=== PATIENT | female | born 1970 | race Caucasian/White ===

== ENCOUNTER 2017-06-16 08:15 | Inpatient (IN) | payer BC ==
[2017-06-16] MEDS ORDERED: Ondansetron 4 MG/2 ML SDV IV PRN (08:28)
[2017-06-16] MEDS ORDERED: Methylergonovine 0.2 MG/1 ML Amp IM PRN (08:28)
[2017-06-16] MEDS ORDERED: Sodium Chloride 0.9% 10 ML Syringe FLUSH PRN (08:28)
[2017-06-16] MEDS ORDERED: Acetaminophen 325 MG Tab PO PRN (08:28)
[2017-06-16] MEDS ORDERED: Carboprost Tromethamine 250 MCG/1 ML Amp IM PRN (08:28)
[2017-06-16] MEDS ORDERED: Misoprostol 400 MCG (4 X 100 MCG TAB) RECTAL PRN (08:28)
[2017-06-16] MEDS ORDERED: Lidocaine 1% 30 ML SDV INJECT PRN (08:28)
[2017-06-16] MEDS ORDERED: Nalbuphine 20 MG/1 ML Amp IVPUSH PRN (08:28)
[2017-06-16] MEDS ORDERED: Lactated Ringers 500 ML IV ONE (08:28)
[2017-06-16] MEDS ORDERED: fentaNYL 100 MCG/2 ML SDV IVPUSH PRN (08:28)
[2017-06-16] MEDS: Lactated Ringers 1,000 ML IV SCH ×3 (08:30→13:26)
[2017-06-16] MEDS: Penicillin G Potassium 3 MILLUNITS in Sodium Chloride 0.9% 100 ML IV SCH ×2 (10:12→19:08)
[2017-06-16] MEDS: Oxytocin/Normal Saline 30 UNIT/500 ML BAG IV SCH ×2 (10:35→11:10)
[2017-06-16] MEDS ORDERED: EPINEPHrine 1 MG/ML SDV ONE (12:16)
[2017-06-16] MEDS ORDERED: fentaNYL 100 MCG/2 ML SDV ONE (12:16)
--- NOTE | 2017-06-16 13:25 | PCM.PRNOTE ---
- Free Text/Narrative Note: Requested to provide analgesia to full term patient in severe pain. Upon entering the room, patient is lying on left side complaining of severe abdominal pain and discomfort. Procedure was discussed with patient including adverse outcomes and expectations. Pt consented to analgesia, SAB/IT. Pt placed into a sitting position. Landmarks for SAB/IT were identified and marked. Back was prepped with betadine x3. A sterile, transparent, fenestrated drape was applied. Excess betadine was removed. Using 3 mL of a 1% lidocaine solution, a skin wheel was placed at the L3/L4 interspace. A 24 ga (4 inch) Pencan spinal needle was inserted until positive for CSF. Negative for heme or paresthesias. Injected fentanyl 20 mcg, sufentanil 10 mcg, and 12 mg of a 0.75 % bupivacaine solution with an epi wash. Pt was placed left lateral position for approximately 20 minutes. There were zero complications or adverse outcomes. Will continue to monitor.
[2017-06-16] MEDS ORDERED: Benzocaine/Menthol 20%-0.5% Spray 56 GM Canister TOP PRN (14:12)
[2017-06-16] MEDS ORDERED: Simethicone 80 MG Tab.Chew PO PRN (14:12)
[2017-06-16] MEDS ORDERED: Oxytocin 10 Units/1 ML SDV IM PRN (14:12)
--- NOTE | 2017-06-16 19:19 | PCM.LDHP ---
L&D History of Present Illness - General Date of Service: 06/16/17 Admit Problem/Dx: Patient Status Order with Admit Dx/Problem 06/16/17 08:28 Patient Status [ADT] Routine Admission Diagnosis/Problem Admission Diagnosis/Problem Source of Information: Patient History Limitations: Reports: No Limitations - History of Present Illness Introduction:: 46-year-old at 39w3d presents to Labor and Delivery via EMS from [place]. Per patient, she started que around 2300 last night. Her contractions initially were only 20 minutes apart; however, because of the travel conditions , she and her decided to head for [place]. Because of the roads, they were only able to make it to [place]. She was monitored there for about 7 hours. She was noted to be que anywhere from every 7 to every 20 minutes. She is GBS positive and received 2 doses of Ampicillin for prophylaxis. She SROM'd for clear fluids around 615 today. When travel conditions improved, she was transported to L&D and arrived shortly after 0830. Patient currently is que every 10-15 minutes. They last about 1 minute. Patient is feeling them but they are not as painful as they were earlier. Baby has been active. No vaginal bleeding. No new headaches. - Related Data Allergies/Adverse Reactions: Allergies Allergy/AdvReac Type Severity Reaction Status Date / Time No Known Allergies Allergy Verified 06/15/17 17:21 Home Medications: Home Meds Pnv No.122/Iron/Folic Acid [ Multi Tablet] 1 tab PO DAILY 06/15/17 [ History] Past Medical History - Past Health History Medical/Surgical History: Denies Medical/Surgical History Psychiatric History: Reports: Depression - Past Surgical History Female Surgical History: Reports: Other (See Below) (Breast lump excision) Musculoskeletal Surgical History: Reports: Other (See Below) (Knee surgery) Social & Family History - Family History Family Medical History: Noncontributory Oncologic: Reports: Colon (2 maternal aunts) - Tobacco Use Smoking Status *Q: Never Smoker Second Hand Smoke Exposure: No - Alcohol Use Alcohol Use History: No - Recreational Drug Use Recreational Drug Use: No - Sexual History Sexual History: Reports: Single Partner - Living Situation & Occupation Living situation: Reports: Occupation: Other (Homemake/emotional support teacher) H&P Review of Systems - Review of Systems: Review Of Systems: See Below General: Reports: No Symptoms HEENT: Reports: No Symptoms Pulmonary: Reports: No Symptoms Cardiovascular: Reports: No Symptoms Genitourinary: Reports: No Symptoms Musculoskeletal: Reports: No Symptoms Skin: Reports: No Symptoms L&D Exam - Exam Exam: See Below - Vital Signs Weight: 80.739 kg - OB Specific Contraction Intensity: Mild to Moderate Movement: Active Heart Tones: Present Heart Tones per Min: 140 Heart Rate (FHR) Variability: Moderate (6-25 bmp) Presentation: Vertex - Pedersen Score Pedersen Score Cervix Position: Midposition Pedersen Score Consistency: Soft Pedersen Score Effacement: >80% Pedersen Score Dilation: 3-4 cm Pedersen Score 's Station: -2 Pedersen Score Total: 9 - Exam General: Alert, Oriented HEENT: Mucosa Moist & [place] Lungs: Clear to Auscultation, Normal Respiratory Effort Cardiovascular: Regular Rate, Regular Rhythm. No: Systolic Murmur, Diastolic Murmur Extremities: No Pedal Edema Skin: Warm, Dry, Intact Psychiatric: Alert, Normal Affect - Patient Data Lab Results Last 24 hrs: Laboratory Results - last 24 hr 06/16/17 Range/Units 08:28 WBC 9.3 (5.0-10.0) 10^3/uL RBC 3.81 L (4.2-5.4) 10^6/uL Hgb 11.8 L (12.0-16.0) g/dL Hct 34.5 L (37.0-47.0) % MCV 90.6 (80-100) fL MCH 31.0 (27.0-34.0) pg MCHC 34.2 (33.0-35.0) g/dL Plt Count 163 (150-450) 10^3/uL Result Diagrams: 06/16/17 08:28 - Problem List (1) SROM (spontaneous rupture of membranes) SNOMED Code(s): 146314015 ICD Code: [id number] - Status: Acute Current Visit: Yes (2) AMA (advanced maternal age) multigravida 35+ SNOMED Code(s): 926918043 ICD Code: O09.529 - SUPERVISION OF ELDERLY MULTIGRAVIDA, UNSPECIFIED TRIMESTER Status: Acute Current Visit: Yes (3) Grand multipara in labor SNOMED Code(s): 980020654 ICD Code: O09.40 - SUPERVISION OF W GRAND MULTIPARITY, UNSP TRIMESTER Status: Acute Current Visit: Yes (4) GBS (group B Streptococcus carrier), +RV culture, currently SNOMED Code(s): 9017683285164, 5531726372493 ICD Code: O99.820 - STREPTOCOCCUS B CARRIER STATE COMPLICATING Status: Acute Current Visit: Yes (5) Abnormal glucose affecting SNOMED Code(s): 455088526 ICD Code: O99.810 - ABNORMAL GLUCOSE COMPLICATING Status: Acute Current Visit: Yes Problem List Initiated/Reviewed/Updated: Yes Orders Last 24hrs: Active Orders 24 hr Category Date Time Status Patient Status [ADT] Routine ADT 06/16/17 08:28 Active Notify Provider Vital Signs OB [RC] ASDIRECTED Care 06/16/17 08:28 Active Notify Provider [RC] PRN Care 06/16/17 08:28 Active Up ad Cynthia [RC] ASDIRECTED Care 06/16/17 08:28 Active Up ad Cynthia [RC] ASDIRECTED Care 06/16/17 14:12 Active Vital Signs [RC] PER UNIT ROUTINE Care 06/16/17 08:28 Inactive Vital Signs [RC] PFP Care 06/16/17 14:12 Active Regular Diet [DIET] Diet 06/16/17 Dinner Active Acetaminophen [Tylenol] Med 06/16/17 08:28 Active 650 mg PO Q4H PRN Benzocaine/Menthol [Dermoplast Pain Relief [place]] Med 06/16/17 14:12 Active See Dose Instructions TOP Q4H PRN Carboprost Tromethamine [Hemabate DS] Med 06/16/17 08:28 Active 250 mcg IM ASDIRECTED PRN Docusate Sodium [Colace] Med 06/16/17 14:12 Active 100 mg PO BID PRN Ibuprofen [Motrin] Med 06/16/17 14:12 Active 800 mg PO Q8H PRN Methylergonovine [Methergine] Med 06/16/17 08:28 Active 0.2 mg IM ASDIRECTED PRN Misoprostol [Cytotec] Med 06/16/17 08:28 Active 800 mcg RECTAL ASDIRECTED PRN Ondansetron [Zofran] Med 06/16/17 08:28 Active 4 mg IV Q4H PRN Oxytocin [Pitocin] Med 06/16/17 14:12 Active 10 unit IM ONETIME PRN Oxytocin/Normal Saline [Pitocin in NS 30 UNIT/500 ML] Med 06/16/17 08:30 Active 30 unit in 500 ml IV TITRATE Vit with Ca/FA/Iron [ Plus Iron] Med 06/17/17 09:00 Active 1 each PO DAILY Simethicone Med 06/16/17 14:12 Active 80 mg PO Q4H PRN Sodium Chloride 0.9% [Saline Flush] Med 06/16/17 08:28 Active 10 ml FLUSH ASDIRECTED PRN Assess Lochia [WOMSER] Per Unit Routine Oth 06/16/17 14:12 Ordered Assess Uterine Involution [WOMSER] Per Unit Routine Oth 06/16/17 14:12 Ordered Breast Pump [WOMSER] Per Unit Routine Oth 06/16/17 14:12 Ordered Ice Therapy [OM.PC] Per Unit Routine Oth 06/16/17 14:12 Ordered Perineal Care [OM.PC] Per Unit Routine Oth 06/16/17 14:12 Ordered Saline Lock Insert [OM.PC] Routine Oth 06/16/17 08:28 Ordered Saline Lock Insert [OM.PC] Urgent Oth 06/16/17 14:12 Ordered Sitz Bath [OM.PC] Per Unit Routine Oth 06/16/17 14:12 Ordered Resuscitation Status Routine Resus Stat 06/16/17 08:28 Ordered Medication Orders Acetaminophen (Tylenol) 650 mg PO Q4H PRN PRN Reason: Pain (Mild 1-3) and fever Benzocaine/Menthol (Dermoplast Pain Relief [place]) 0 gm TOP Q4H PRN PRN Reason: Perineal comfort measures Carboprost Tromethamine (Hemabate Ds) 250 mcg IM ASDIRECTED PRN PRN Reason: HEMORRHAGE Docusate Sodium (Colace) 100 mg PO BID PRN PRN Reason: Constipation Oxytocin/Sodium Chloride (Pitocin In Ns 30 Unit/500 Ml) 30 unit in 500 mls @ 1 mls/hr IV TITRATE KAMALJIT; 1 MUNITS/MIN PRN Reason: Protocol Last Titration: 06/16/17 12:38 Dose: 4 munits/min, 4 mls/hr Titration: 06/16/17 11:50 Dose: 3 munits/min, 3 mls/hr Admin: 06/16/17 11:10 Dose: 2 munits/min, 2 mls/hr Admin: 06/16/17 10:35 Dose: Not Given Ibuprofen (Motrin) 800 mg PO Q8H PRN PRN Reason: Mild Pain or Fever Methylergonovine Maleate (Methergine) 0.2 mg IM ASDIRECTED PRN PRN Reason: Hemorrhage Misoprostol (Cytotec) 800 mcg RECTAL ASDIRECTED PRN PRN Reason: Hemorrhage Ondansetron HCl (Zofran) 4 mg IV Q4H PRN PRN Reason: Nausea/Vomiting Last Admin: 06/16/17 11:59 Dose: 4 mg Oxytocin (Pitocin) 10 unit IM ONETIME PRN PRN Reason: Bleeding Prenat Multivit/[place]/Iron/Folic Ac ( Plus Iron) 1 each PO DAILY KAMALJIT Simethicone (Simethicone) 80 mg PO Q4H PRN PRN Reason: Gas Sodium Chloride (Saline Flush) 10 ml FLUSH ASDIRECTED PRN PRN Reason: Keep Vein Open Assessment/Plan Comment:: 46-year-old at 39w3d with SROM and early labor 1. Admit to L&D 2. Initiate routine intrapartum cares 3. PCN for GBS prophylaxis 4. Discussed pitocin use for labor augmentation. Patient would like to wait 2- 3 hours to see if she progresses. If not, she is agreeable to starting pitocin. 5. Anticipate . Patient has history of rapid labor. Maren Moses MD
--- NOTE | 2017-06-16 20:19 | PCM.DEL ---
L & D Note - General Info Date of Service: 06/16/17 Mother's Due Date: 06/20/17 - Delivery Note Labor: Spontaneous, Augmented by Oxytocin Cervical Ripening Method: Oxytocin Delivery Outcome: Livebirth Delivery Method: Spontaneous Vaginal Delivery-Single Presentation: Vertex Nuchal Cord: Present, Reduced Anesthesia Type: Intrathecal Amniotic Fluid Description: Clear Episiotomy Type: two stitch Laceration: 1st Degree, Perineal Suture type: Vicryl Suture size: 3-0 Placenta: Intact, Spontaneous Cord: 3 Vessels Estimated Blood Loss: 250 Resuscitation Needed: No [place]: Warmed, [place] Used Provider: Maren Moses Score 1 min: 8 Score 5 min: 9 Delivery Comments (Free Text/Narrative):: 46-year-old presented to L&D via EMS from [place] where she had been in early labor overnight due to adverse weather conditions. She SROM'd around 0615 AM. After minimal cervical change for >4 hours, the decision was made to augment labor with pitocin. Patient received an intrathecal for pain control. She progressed to complete dilation around 1315. Patient pushed 4 times and delivered a viable male with Apgars of 8 and 9 and 1 and 5 minutes respectively. A loose nuchal cord was reduced after delivery of the baby. Baby was then placed on mother's chest. The umbilical cord was clamped x2 and cut. Cord blood was collected. The perineum was inspected and a small 1st degree laceration was noted. The placenta delivered less than 10 minutes later. It was noted to be intact. The perineum was reinspected. The first degree laceration was bleeding quite briskly. Two sutures were placed to reapproximate the tissue and achieve hemostasis. The uterus was noted to be firm, and bleeding was appropriate. The patient tolerated the procedure well, and there were no immediate complications. - Patient Data Vitals - Most Recent: Last Vital Signs Temp 36.8 C 06/16/17 11:15 Pulse 67 06/16/17 11:45 Resp 16 06/16/17 11:00 BP 118/59 L 06/16/17 11:45 Pulse Ox 98 06/16/17 09:00 Weight - Most Recent: 80.739 kg I&O - Last 24 Hours: Intake & Output 06/16/17 06/16/17 06/16/17 06:59 14:59 22:59 Intake Total 3100 1300 Balance 3100 1300 Lab Results Last 24 Hours: Laboratory Results - last 24 hr 06/16/17 Range/Units 08:28 WBC 9.3 (5.0-10.0) 10^3/uL RBC 3.81 L (4.2-5.4) 10^6/uL Hgb 11.8 L (12.0-16.0) g/dL Hct 34.5 L (37.0-47.0) % MCV 90.6 (80-100) fL MCH 31.0 (27.0-34.0) pg MCHC 34.2 (33.0-35.0) g/dL Plt Count 163 (150-450) 10^3/uL Med Orders - Current: Current Medications Acetaminophen (Tylenol) 650 mg PO Q4H PRN PRN Reason: Pain (Mild 1-3) and fever Benzocaine/Menthol (Dermoplast Pain Relief [place]) 0 gm TOP Q4H PRN PRN Reason: Perineal comfort measures Carboprost Tromethamine (Hemabate Ds) 250 mcg IM ASDIRECTED PRN PRN Reason: HEMORRHAGE Docusate Sodium (Colace) 100 mg PO BID PRN PRN Reason: Constipation Oxytocin/Sodium Chloride (Pitocin In Ns 30 Unit/500 Ml) 30 unit in 500 mls @ 1 mls/hr IV TITRATE KAMALJIT; 1 MUNITS/MIN PRN Reason: Protocol Last Titration: 06/16/17 12:38 Dose: 4 munits/min, 4 mls/hr Ibuprofen (Motrin) 800 mg PO Q8H PRN PRN Reason: Mild Pain or Fever Methylergonovine Maleate (Methergine) 0.2 mg IM ASDIRECTED PRN PRN Reason: Hemorrhage Misoprostol (Cytotec) 800 mcg RECTAL ASDIRECTED PRN PRN Reason: Hemorrhage Ondansetron HCl (Zofran) 4 mg IV Q4H PRN PRN Reason: Nausea/Vomiting Last Admin: 06/16/17 11:59 Dose: 4 mg Oxytocin (Pitocin) 10 unit IM ONETIME PRN PRN Reason: Bleeding Prenat Multivit/[place]/Iron/Folic Ac ( Plus Iron) 1 each PO DAILY KAMALJIT Simethicone (Simethicone) 80 mg PO Q4H PRN PRN Reason: Gas Sodium Chloride (Saline Flush) 10 ml FLUSH ASDIRECTED PRN PRN Reason: Keep Vein Open Discontinued Medications Epinephrine HCl (Adrenalin) Confirm Administered Dose 1 mg .ROUTE .STK-MED ONE Stop: 06/16/17 12:17 Last Admin: 06/16/17 19:07 Dose: Not Given Fentanyl (Sublimaze) 50 mcg IVPUSH Q1H PRN PRN Reason: Pain (moderate 4-6) Fentanyl (Sublimaze) Confirm Administered Dose 100 mcg .ROUTE .STK-MED ONE Stop: 06/16/17 12:17 Last Admin: 06/16/17 19:07 Dose: Not Given Lactated Ringer's (Ringers, Lactated) 500 mls @ 999 mls/hr IV .BOLUS ONE Stop: 06/16/17 08:58 Lactated Ringer's (Ringers, Lactated) 1,000 mls @ 125 mls/hr IV ASDIRECTED [facility] Last Admin: 06/16/17 13:26 Dose: 125 mls/hr Penicillin G Potassium 3 (millunits/ Sodium Chloride) 100 mls @ 200 mls/hr IV Q4HR [facility] Last Admin: 06/16/17 19:08 Dose: Not Given Lidocaine HCl (Xylocaine-Mpf 1%) 10 ml INJECT ASDIRECTED PRN PRN Reason: Perineal Repair Nalbuphine HCl (Nubain) 10 mg IVPUSH Q3H PRN PRN Reason: Pain (moderate 4-6) Sufentanil Citrate (Sufenta) Confirm Administered Dose 50 mcg .ROUTE .STK-MED ONE Stop: 06/16/17 12:17 Last Admin: 06/16/17 19:07 Dose: Not Given - Problem List & Annotations (1) SROM (spontaneous rupture of membranes) SNOMED Code(s): 010518611 Code(s): TZL0952 - Status: Acute Current Visit: Yes (2) AMA (advanced maternal age) multigravida 35+ SNOMED Code(s): 651219114 Code(s): O09.529 - SUPERVISION OF ELDERLY MULTIGRAVIDA, UNSPECIFIED TRIMESTER Status: Acute Current Visit: Yes (3) Grand multipara in labor SNOMED Code(s): 563320118 Code(s): O09.40 - SUPERVISION OF W GRAND MULTIPARITY, UNSP TRIMESTER Status: Acute Current Visit: Yes (4) GBS (group B Streptococcus carrier), +RV culture, currently SNOMED Code(s): 7335518367677, 9636216249576 Code(s): O99.820 - STREPTOCOCCUS B CARRIER STATE COMPLICATING Status: Acute Current Visit: Yes (5) Abnormal glucose affecting SNOMED Code(s): 895381367 Code(s): O99.810 - ABNORMAL GLUCOSE COMPLICATING Status: Acute Current Visit: Yes (6) (normal spontaneous vaginal delivery) SNOMED Code(s): 14636312 Code(s): O80 - ENCOUNTER FOR FULL-TERM UNCOMPLICATED DELIVERY Status: Acute Current Visit: Yes (7) First-degree perineal laceration, delivered SNOMED Code(s): 322410452 Code(s): O70.0 - FIRST DEGREE PERINEAL LACERATION DURING DELIVERY Status: Acute Current Visit: Yes - Problem List Review Problem List Initiated/Reviewed/Updated: Yes - My Orders Last 24 Hours: My Active Orders 06/16/17 08:28 Patient Status [ADT] Routine Notify Provider Vital Signs OB [RC] ASDIRECTED Notify Provider [RC] PRN Up ad Cynthia [RC] ASDIRECTED Vital Signs [RC] PER UNIT ROUTINE Acetaminophen [Tylenol] 650 mg PO Q4H PRN Carboprost Tromethamine [Hemabate DS] 250 mcg IM ASDIRECTED PRN Methylergonovine [Methergine] 0.2 mg IM ASDIRECTED PRN Misoprostol [Cytotec] 800 mcg RECTAL ASDIRECTED PRN Ondansetron [Zofran] 4 mg IV Q4H PRN Sodium Chloride 0.9% [Saline Flush] 10 ml FLUSH ASDIRECTED PRN Saline Lock Insert [OM.PC] Routine Resuscitation Status Routine 06/16/17 08:30 Oxytocin/Normal Saline [Pitocin in NS 30 UNIT/500 ML] 30 unit in 500 ml IV TITRATE 06/16/17 14:12 Up ad Cynthia [RC] ASDIRECTED Vital Signs [RC] PFP Benzocaine/Menthol [Dermoplast Pain Relief [place]] See Dose Instructions TOP Q4H PRN Docusate Sodium [Colace] 100 mg PO BID PRN Ibuprofen [Motrin] 800 mg PO Q8H PRN Oxytocin [Pitocin] 10 unit IM ONETIME PRN Simethicone 80 mg PO Q4H PRN Assess Lochia [WOMSER] Per Unit Routine Assess Uterine Involution [WOMSER] Per Unit Routine Breast Pump [WOMSER] Per Unit Routine Ice Therapy [OM.PC] Per Unit Routine Perineal Care [OM.PC] Per Unit Routine Saline Lock Insert [OM.PC] Urgent Sitz Bath [OM.PC] Per Unit Routine 06/16/17 Dinner Regular Diet [DIET] 06/17/17 09:00 Vit with Ca/FA/Iron [ Plus Iron] 1 each PO DAILY - Assessment Assessment:: 46-year-old now status post at 39w3d - Plan Plan:: 1. Initiate routine cares 2. Plans to breastfeed 3. Closely monitor bleeding 4. Anticipate discharge 06/18/17 Maren Moses MD
[2017-06-16] MEDS: Docusate Sodium 100 MG Cap PO PRN (21:52)
[2017-06-16] MEDS: Ibuprofen 800 MG Tab PO PRN (21:52)
[2017-06-17] MEDS ORDERED: Prenatal Multivitamin with Calcium/Folic Acid/Iron Tab PO SCH (09:00)
[2017-06-17] MEDS: Docusate Sodium 100 MG Cap PO PRN (09:25)
[2017-06-17] MEDS: Ibuprofen 800 MG Tab PO PRN (09:26)
[2017-06-17] MEDS ORDERED: EPINEPHrine 1 MG/ML SDV ONE (11:35)
[2017-06-17] MEDS ORDERED: fentaNYL 100 MCG/2 ML SDV ITHECAL ONE (11:35)
--- NOTE | 2017-06-17 14:00 | PCM.DCSUM1 ---
Discharge Summary - Hospital Course Free Text/Narrative:: 46-year-old now PPD#1 status post - Discharge Data Discharge Date: 06/17/17 Discharge Disposition: Home, Self-Care 01 Condition: Good - Discharge Diagnosis/Problem(s) (1) SROM (spontaneous rupture of membranes) SNOMED Code(s): 593538389 ICD Code: [id number] - Status: Acute Current Visit: Yes (2) AMA (advanced maternal age) multigravida 35+ SNOMED Code(s): 708984239 ICD Code: O09.529 - SUPERVISION OF ELDERLY MULTIGRAVIDA, UNSPECIFIED TRIMESTER Status: Acute Current Visit: Yes (3) Grand multipara in labor SNOMED Code(s): 841226883 ICD Code: O09.40 - SUPERVISION OF W GRAND MULTIPARITY, UNSP TRIMESTER Status: Acute Current Visit: Yes (4) GBS (group B Streptococcus carrier), +RV culture, currently SNOMED Code(s): 9989800712691, 5789123488001 ICD Code: O99.820 - STREPTOCOCCUS B CARRIER STATE COMPLICATING Status: Acute Current Visit: Yes (5) Abnormal glucose affecting SNOMED Code(s): 516514768 ICD Code: O99.810 - ABNORMAL GLUCOSE COMPLICATING Status: Acute Current Visit: Yes (6) (normal spontaneous vaginal delivery) SNOMED Code(s): 16908813 ICD Code: O80 - ENCOUNTER FOR FULL-TERM UNCOMPLICATED DELIVERY Status: Acute Current Visit: Yes (7) First-degree perineal laceration, delivered SNOMED Code(s): 878691328 ICD Code: O70.0 - FIRST DEGREE PERINEAL LACERATION DURING DELIVERY Status: Acute Current Visit: Yes - Patient Summary/Data Operative Procedure(s) Performed: None Complications: None Consults: None Labs Pending at D/C: None Recommended Follow-up Testing/Procedures: None Planned Operative Procedure(s) after DC: None Hospital Course: Unremarkable. (Please see subjective section) - Patient Instructions Diet: Usual Diet as Tolerated Activity: No Lifting Over 10 Pounds, Rest and Relax Today Driving: May Drive Today Showering/Bathing: May Shower Notify Provider of: Fever, Increased Pain, Drainage - Discharge Plan Home Medications: Home Meds Pnv No.122/Iron/Folic Acid [ Multi Tablet] 1 tab PO DAILY 06/15/17 [ History] Acetaminophen [Tylenol] 650 mg PO Q4H PRN tablet 06/17/17 [Rx] Docusate Sodium [Colace] 100 mg PO BID PRN cap 06/17/17 [Rx] Ibuprofen [IJD: Ibuprofen] 800 mg PO Q8H PRN tablet 06/17/17 [Rx] Referrals: Anne Foster MD [Primary Care Provider] - (6-8 weeks for routine ) - Discharge Summary/Plan Comment Discharge Summary/Plan Comment: Patient discharged home today. Baby will be seen next week. Reasons to return before her routine exam were reviewed. She had no questions. - General Info Date of Service: 06/17/17 Subjective Update: Doing well today. Minimal cramping. Bleeding has already decreased some. fairly well. Baby will sometimes fight latching but does well once latched. No fevers or chills. No dizziness or lightheadedness. Tolerating a general diet. Urinating and passing gas. Functional Status: Reports: Pain Controlled, Tolerating Diet, Ambulating, Urinating. Denies: New Symptoms - Review of Systems General: Reports: No Symptoms HEENT: Reports: No Symptoms Pulmonary: Reports: No Symptoms Cardiovascular: Reports: No Symptoms Gastrointestinal: Reports: No Symptoms Genitourinary: Reports: No Symptoms Musculoskeletal: Reports: No Symptoms Skin: Reports: No Symptoms - Patient Data Vitals - Most Recent: Last Vital Signs Temp 36.8 C 06/16/17 14:00 Pulse 63 06/16/17 16:00 Resp 18 06/16/17 12:15 BP 103/56 L 06/16/17 16:00 Pulse Ox 98 06/16/17 09:00 Weight - Most Recent: 80.739 kg I&O - Last 24 hours: Intake & Output 06/16/17 06/17/17 06/17/17 22:59 06:59 14:59 Intake Total 1300 Output Total 1400 Balance -100 Med Orders - Current: Current Medications Acetaminophen (Tylenol) 650 mg PO Q4H PRN PRN Reason: Pain (Mild 1-3) and fever Last Admin: 06/17/17 09:27 Dose: 650 mg Benzocaine/Menthol (Dermoplast Pain Relief [place]) 0 gm TOP Q4H PRN PRN Reason: Perineal comfort measures Last Admin: 06/16/17 21:52 Dose: 1 spray Carboprost Tromethamine (Hemabate Ds) 250 mcg IM ASDIRECTED PRN PRN Reason: HEMORRHAGE Docusate Sodium (Colace) 100 mg PO BID PRN PRN Reason: Constipation Last Admin: 06/17/17 09:25 Dose: 100 mg Oxytocin/Sodium Chloride (Pitocin In Ns 30 Unit/500 Ml) 30 unit in 500 mls @ 1 mls/hr IV TITRATE KAMALJIT; 1 MUNITS/MIN PRN Reason: Protocol Last Titration: 06/16/17 12:38 Dose: 4 munits/min, 4 mls/hr Ibuprofen (Motrin) 800 mg PO Q8H PRN PRN Reason: Mild Pain or Fever Last Admin: 06/17/17 09:26 Dose: 800 mg Methylergonovine Maleate (Methergine) 0.2 mg IM ASDIRECTED PRN PRN Reason: Hemorrhage Misoprostol (Cytotec) 800 mcg RECTAL ASDIRECTED PRN PRN Reason: Hemorrhage Ondansetron HCl (Zofran) 4 mg IV Q4H PRN PRN Reason: Nausea/Vomiting Last Admin: 06/16/17 11:59 Dose: 4 mg Oxytocin (Pitocin) 10 unit IM ONETIME PRN PRN Reason: Bleeding Prenat Multivit/[place]/Iron/Folic Ac ( Plus Iron) 1 each PO DAILY KAMALJIT Last Admin: 06/17/17 09:25 Dose: 1 each Simethicone (Simethicone) 80 mg PO Q4H PRN PRN Reason: Gas Sodium Chloride (Saline Flush) 10 ml FLUSH ASDIRECTED PRN PRN Reason: Keep Vein Open Discontinued Medications Epinephrine HCl (Adrenalin) Confirm Administered Dose 1 mg .ROUTE .STK-MED ONE Stop: 06/16/17 12:17 Last Admin: 06/16/17 19:07 Dose: Not Given Epinephrine HCl (Adrenalin) 0.1 mg .XX .STK-MED ONE Stop: 06/17/17 11:36 Fentanyl (Sublimaze) 50 mcg IVPUSH Q1H PRN PRN Reason: Pain (moderate 4-6) Fentanyl (Sublimaze) Confirm Administered Dose 100 mcg .ROUTE .STK-MED ONE Stop: 06/16/17 12:17 Last Admin: 06/16/17 19:07 Dose: Not Given Fentanyl (Sublimaze) 20 mcg ITHECAL .STK-MED ONE Stop: 06/17/17 11:36 Lactated Ringer's (Ringers, Lactated) 500 mls @ 999 mls/hr IV .BOLUS ONE Stop: 06/16/17 08:58 Last Admin: 06/16/17 22:13 Dose: Not Given Lactated Ringer's (Ringers, Lactated) 1,000 mls @ 125 mls/hr IV ASDIRECTED KAMALJIT Last Admin: 06/16/17 13:26 Dose: 125 mls/hr Penicillin G Potassium 3 (millunits/ Sodium Chloride) 100 mls @ 200 mls/hr IV Q4HR [facility] Last Admin: 06/16/17 19:08 Dose: Not Given Lidocaine HCl (Xylocaine-Mpf 1%) 10 ml INJECT ASDIRECTED PRN PRN Reason: Perineal Repair Nalbuphine HCl (Nubain) 10 mg IVPUSH Q3H PRN PRN Reason: Pain (moderate 4-6) Sufentanil Citrate (Sufenta) Confirm Administered Dose 50 mcg .ROUTE .STK-MED ONE Stop: 06/16/17 12:17 Last Admin: 06/16/17 19:07 Dose: Not Given Sufentanil Citrate (Sufenta) 10 mcg ITHECAL .STK-MED ONE Stop: 06/17/17 11:36 - Exam General: Reports: Alert, Oriented Lungs: Reports: Clear to Auscultation, Normal Respiratory Effort Cardiovascular: Reports: Regular Rate, Regular Rhythm, No Murmurs Extremities: No Pedal Edema Skin: Reports: Warm, Dry, Intact *Q Meaningful Use (DIS) - VTE *Q VTE Criteria *Q: - Stroke *Q Stroke Criteria *Q: - AMI *Q AMI Criteria *Q:
== END 2017-06-17 17:30 | disposition home or self-care (01) | DRG 560 ==
LOC: DL.OB 08:15 → OBSVTOIN 12:48 → DL.MS 16:34 → EDSTATUS 07-06 07:38
PROVIDERS: ADMIT Family Medicine; ATTEND Family Medicine
PROC: 10E0XZZ Delivery of Products of Conception, External Approach (ICD-10-PCS; principal; 2017-06-16)
PROC: 0HQ9XZZ Repair Perineum Skin, External Approach (ICD-10-PCS; 2017-06-16)
PROC: 00HU33Z Insertion of Infusion Device into Spinal Canal, Percutaneous Approach (ICD-10-PCS; 2017-06-16)
PROC: 3E0R3BZ Introduction of Anesthetic Agent into Spinal Canal, Percutaneous Approach (ICD-10-PCS; 2017-06-16)
DX: O42.02 Full-term premature rupture of membranes, onset of labor within 24 hours of rupture (principal); Z3A.39 39 weeks gestation of pregnancy; Z37.0 Single live birth; O99.824 Streptococcus B carrier state complicating childbirth; O70.0 First degree perineal laceration during delivery; O69.81X0 Labor and delivery complicated by cord around neck, without compression, not applicable or unspecified
CPT/HCPCS: 36415; 59300; 59409; 85027; A9270-GY; J0171; J2405; J2540; J2590; J3010; J7050; J7120